=== PATIENT | male | born 1990 | race Caucasian/White ===

== ENCOUNTER → 2017-08-24 | Emergency (ER) | payer MEDICAID | END | disposition left against medical advice (07) | LOC: ER 16:30 | DX: M25.461 Effusion, right knee (principal); Z53.21 Procedure and treatment not carried out due to patient leaving prior to being seen by health care provider ==

== ENCOUNTER 2018-06-09 17:18 | Emergency (ER) | payer MEDICAID ==
[~2018-06-09] VITALS: Ht 175.3 cm; Wt 93.0 kg
[2018-06-09 19:04] VITALS: BP 109/76
== END 2018-06-09 20:00 | disposition home or self-care (01) ==
LOC: ER 17:18
DX: J20.9 Acute bronchitis, unspecified (principal)